=== PATIENT | male | born 2000 | race Caucasian/White ===

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

== ENCOUNTER 2021-02-03 00:02 | Emergency (ER) | payer OTHER ==
[2021-02-03 00:09] VITALS: RESP 16; TEMP 97.7
--- NOTE | 2021-02-03 00:31 | ED ---
Chest Pain HPI - General Chief Complaint: Chest Pain Stated Complaint: Chest Pain Time Seen by Provider: 02/03/21 00:17 Source: patient Mode of arrival: wheelchair Limitations: no limitations - History of Present Illness Initial Comments: This patient is a 20-year-old man who presents to be evaluated for left-sided chest pain. Patient states this is been going on intermittently for number days now. The patient states that every known and is coming by anxiety. He states that when he hasn't at work it improves when he exerts himself. He does also occasionally have some numbness and tingling associated MD Complaint: chest pain -: days(s) Onset: during rest Pain Location: left chest Pain Radiation: none Severity: moderate Quality: dull Consistency: intermittent, now resolved Improves With: nothing Worsens With: nothing Treatments Prior to Arrival: none - Related Data Home Medications Medication Instructions Recorded Confirmed Levothyroxine Sodium [Synthroid] 50 mcg PO DAILY 12/11/15 10/01/17 Acetaminophen [Tylenol] 650 mg PO Q6HR PRN 10/01/17 10/01/17 Lisdexamfetamine Dimesylate 60 mg PO DAILY 10/01/17 10/01/17 [Vyvanse] Previous Rx's Medication Instructions Recorded Ibuprofen [Motrin] 600 mg PO Q8HR PRN #20 tab 10/01/17 Oseltamivir [Tamiflu] 75 mg PO Q12HR #10 cap 10/01/17 Promethazine/Dextromethorphan 5 ml PO TID #120 ml 10/01/17 [Phenergan DM Syrup] Allergies Allergy/AdvReac Type Severity Reaction Status Date / Time No Known Allergies Allergy Verified 02/03/21 00:10 Review of Systems ROS Statement: Those systems with pertinent positive or pertinent negative responses have been documented in the HPI. ROS Other: All systems not noted in ROS Statement are negative. Constitutional: Denies: fever, chills Respiratory: Denies: cough, dyspnea Cardiovascular: Reports: as per HPI, chest pain. Denies: palpitations, edema, syncope Gastrointestinal: Denies: abdominal pain, nausea, vomiting Genitourinary: Denies: dysuria, hematuria Musculoskeletal: Denies: back pain Skin: Denies: rash Neurological: Denies: headache, weakness, numbness Psychiatric: Reports: anxiety EKG Findings - EKG Results: EKG: interpreted by RHONDA, sinus rhythm (With sinus arrhythmia, rate 64 bpm), normal axis, normal QRS, normal ST/T Past Medical History Past Medical History: Thyroid Disorder History of Any Multi-Drug Resistant Organisms: None Reported Past Surgical History: No Surgical Hx Reported Past Psychological History: Anxiety, Bipolar Smoking Status: Never smoker Past Alcohol Use History: None Reported Past Drug Use History: None Reported General Exam Limitations: no limitations General appearance: alert, in no apparent distress Head exam: Present: atraumatic, normocephalic Eye exam: Present: normal appearance. Absent: scleral icterus, conjunctival injection Neck exam: Present: normal inspection Respiratory exam: Present: normal lung sounds bilaterally. Absent: respiratory distress, wheezes, rales, rhonchi, stridor, chest wall tenderness Cardiovascular Exam: Present: regular rate, normal rhythm, normal heart sounds. Absent: systolic murmur, diastolic murmur, rubs, gallop GI/Abdominal exam: Present: soft. Absent: distended, tenderness, guarding, rebound, rigid, mass Extremities exam: Present: normal inspection, normal capillary refill. Absent: pedal edema, calf tenderness Back exam: Present: normal inspection Neurological exam: Present: alert Skin exam: Present: warm, dry, intact, normal color. Absent: rash Course Vital Signs 02/03/21 02/03/21 00:05 01:21 Temperature 97.7 F Pulse Rate 69 72 Respiratory 16 16 Rate Blood Pressure 134/76 122/60 O2 Sat by Pulse 100 100 Oximetry Disposition Clinical Impression: Chest pain Disposition: HOME SELF-CARE Condition: Good Instructions (If sedation given, give patient instructions): Chest Pain (ED) Is patient prescribed a controlled substance at d/c from ED?: No Referrals: Juan Bella Jr, DO [Primary Care Provider] - 1-2 days
--- NOTE | 2021-02-03 00:56 | XR ---
EXAM: XR Chest, 2 Views CLINICAL HISTORY: chest pain TECHNIQUE: Frontal and lateral views of the chest. COMPARISON: No relevant prior studies available. FINDINGS: Lungs: No significant abnormality. No consolidation. Pleural space: No significant abnormality. No pneumothorax. Heart: No significant abnormality. No cardiomegaly. Mediastinum: No significant abnormality. Bones/joints: No acute osseous abnormality. IMPRESSION: No acute cardiopulmonary process.
[2021-02-03 01:23] LABS: Basophils # (A) 0.1 k/uL (0-0.2); Basophils % (A) 1 %; Eosinophils # (A) 0.7 k/uL (0-0.7); Eosinophils % (A) 5 %; HCT 43.3 % (39.0-53.0); HGB 14.9 gm/dL (13.0-17.5); Lymphocytes % (A) 22 %; MCH 27.7 pg (25.0-35.0); MCHC 34.3 g/dL (31.0-37.0); MCV 80.6 fL (80.0-100.0); Mean Platelet Volume 8.4; Monocytes % (A) 7 %; Neutrophils # (A) 8.9 k/uL (1.3-7.7); Neutrophils % (A) 64 %; Platelet Count 246 k/uL (150-450); RBC 5.37 m/uL (4.30-5.90); RDW 13.3 % (11.5-15.5); WBC 13.8 k/uL (4.0-11.0)
[2021-02-03 01:24] VITALS: BP 122/60; PULSE 72
[2021-02-03 01:32] LABS: African American GFR (CKD) >90 (>60 ml/min/1.73 sqM); Anion Gap 9 mmol/L; Blood Urea Nitrogen 14 mg/dL (9-20); Calcium 9.8 mg/dL (8.4-10.2); Carbon Dioxide 24 mmol/L (22-30); Chloride 106 mmol/L (98-107); Glucose 96 mg/dL (74-99); Non-African American GFR(CKD) >90 (>60 ml/min/1.73 sqM); Potassium 4.2 mmol/L (3.5-5.1); Sodium 139 mmol/L (137-145)
== END 2021-02-03 02:05 | disposition home or self-care (01) ==
LOC: EC 00:02
DX: R07.89 Other chest pain (principal); R20.2 Paresthesia of skin; E07.9 Disorder of thyroid, unspecified; Z79.899 Other long term (current) drug therapy
CPT/HCPCS: 36415; 71046; 80048; 84443; 84484; 85025; 93005; 99285

== ENCOUNTER 2021-06-06 11:32 | Emergency (ER) | payer OTHER ==
[2021-06-06 12:11] VITALS: TEMP 97.9
--- NOTE | 2021-06-06 12:48 | XR ---
EXAMINATION TYPE: XR chest 2V DATE OF EXAM: 06/06/2021 COMPARISON: 02/03/2021 HISTORY: 20-year-old male with chest pain TECHNIQUE: PA and lateral views FINDINGS: The cardiomediastinal silhouette, aorta, and pulmonary vasculature are within normal limits. Lungs an d pleural spaces are clear. IMPRESSION: No acute cardiopulmonary process.
[2021-06-06] MEDS ORDERED: KETOROLAC 15 MG/ML 1 ML VIAL IM STA (15:12)
--- NOTE | 2021-06-06 15:14 | ED ---
General Adult HPI - General Chief complaint: Chest Pain Stated complaint: Chest/back/L arm pain Time Seen by Provider: 06/06/21 15:04 Source: patient, RN notes reviewed, old records reviewed Mode of arrival: wheelchair Limitations: no limitations - History of Present Illness Initial comments: This is a well-appearing 20-year-old male that presents to the emergency room with complaints of left shoulder pain that radiates down his left arm and sometimes into his left chest and left shoulder blade. He states that he has had this in the past and he was told that it was work-related from repetitive movements. He does admit that this is worse when he is at work. He has not tried any medications. He is a nonsmoker and does not use any drugs. He states he has not had fever, no nausea vomiting or diarrhea. He has full range of motion. He denies any injuries. Location: left, upper extremity (Shoulder and arm) Radiation: distal Severity scale (1-10): 6 Quality: other (Shooting) Consistency: intermittent Improves with: rest Worsens with: movement Associated Symptoms: denies other symptoms Treatments Prior to Arrival: none - Related Data Home Medications Medication Instructions Recorded Confirmed Levothyroxine Sodium [Synthroid] 50 mcg PO DAILY 12/11/15 10/01/17 Acetaminophen [Tylenol] 650 mg PO Q6HR PRN 10/01/17 10/01/17 Lisdexamfetamine Dimesylate 60 mg PO DAILY 10/01/17 10/01/17 [Vyvanse] Previous Rx's Medication Instructions Recorded Ibuprofen [Motrin] 600 mg PO Q8HR PRN #20 tab 10/01/17 Oseltamivir [Tamiflu] 75 mg PO Q12HR #10 cap 10/01/17 Promethazine/Dextromethorphan 5 ml PO TID #120 ml 10/01/17 [Phenergan DM Syrup] Ibuprofen [Motrin] 600 mg PO Q8HR PRN #30 tab 06/06/21 Allergies Allergy/AdvReac Type Severity Reaction Status Date / Time No Known Allergies Allergy Verified 06/06/21 12:11 Review of Systems ROS Statement: Those systems with pertinent positive or pertinent negative responses have been documented in the HPI. ROS Other: All systems not noted in ROS Statement are negative. Past Medical History Past Medical History: Thyroid Disorder History of Any Multi-Drug Resistant Organisms: None Reported Past Surgical History: No Surgical Hx Reported Past Psychological History: Anxiety, Bipolar Smoking Status: Never smoker Past Alcohol Use History: None Reported Past Drug Use History: None Reported General Exam Limitations: no limitations General appearance: alert, in no apparent distress Head exam: Present: atraumatic, normocephalic, normal inspection Eye exam: Present: normal appearance, EOMI Neck exam: Present: normal inspection, full ROM. Absent: tenderness, meningismus, lymphadenopathy, thyromegaly Respiratory exam: Present: normal lung sounds bilaterally Cardiovascular Exam: Present: regular rate, normal rhythm. Absent: systolic murmur, diastolic murmur, rubs, gallop, clicks GI/Abdominal exam: Present: soft, normal bowel sounds. Absent: distended, tenderness, guarding, rebound, rigid Extremities exam: Present: normal inspection, full ROM, normal capillary refill. Absent: tenderness, pedal edema, joint swelling, calf tenderness Back exam: Absent: tenderness, paraspinal tenderness, vertebral tenderness Neurological exam: Present: alert, oriented X3, CN II-XII intact Psychiatric exam: Present: normal affect, normal mood Skin exam: Present: warm, dry, intact, normal color. Absent: rash, cyanosis, diaphoretic, petechiae, pallor Course Vital Signs 06/06/21 06/06/21 12:06 16:17 Temperature 97.9 F Pulse Rate 83 64 Respiratory 19 18 Rate Blood Pressure 122/63 126/74 O2 Sat by Pulse 98 99 Oximetry EKG Findings - EKG Results: EKG: sinus rhythm (ventricular rate 58, [place] interval 0.150, QRS of 0.120, QTC 0. 386) Medical Decision Making - Medical Decision Making Chest x-ray shows no acute cardiopulmonary process. Patient's pain is exacerbated while at work. He states that he is doing heavy lifting over his head often. He has had this before and it was related to movements at work. He states that the pain goes from his shoulder down his left arm to his little finger and it is shooting in nature. He has not tried any Tylenol or Motrin at home. He has full range of movement denies any shortness of breath or nausea and vomiting. He has no family history of sudden cardiac . He'll be directed to follow up with primary care doctor in 1 week. Case discussed with Dr. Hall. Disposition Clinical Impression: Neuropathy Disposition: HOME SELF-CARE Condition: Good Additional Instructions: Take Motrin as prescribed for pain. Follow-up with the primary care doctor in 1 week. Return if any new or worsening symptoms. Prescriptions: Ibuprofen [Motrin] 600 mg PO Q8HR PRN #30 tab PRN Reason: Pain Is patient prescribed a controlled substance at d/c from ED?: No Referrals: Juan Bella Jr, [Primary Care Provider] - 1-2 days Time of Disposition: 15:46
[2021-06-06 16:18] VITALS: BP 126/74; PULSE 64; RESP 18
== END 2021-06-06 16:21 | disposition home or self-care (01) ==
LOC: EC 11:32
DX: G62.9 Polyneuropathy, unspecified (principal); E07.9 Disorder of thyroid, unspecified; Z79.890 Hormone replacement therapy
CPT/HCPCS: 93005; 71046; 96372; 99285; J1885

== ENCOUNTER 2023-11-30 03:58 | Emergency (ER) | payer OTHER ==
--- NOTE | 2023-11-30 04:21 | ED ---
Dizziness HPI - General Chief Complaint: Anxiety Stated Complaint: light headed dizziness chest pains Time Seen by Provider: 11/30/23 04:16 Source: patient, RN notes reviewed, old records reviewed Mode of arrival: ambulatory Limitations: no limitations - History of Present Illness Initial Comments: This is a 22-year-old male presenting from mother-baby for evaluation regards to dizziness and lightheadedness. The symptoms all began after his gave with today. Patient states he was simply stressed throughout the day and night unable to rest remember after the combination of events and became very lightheaded dizzy and weak. Patient has recent cardiac evaluation and evaluation for cause of chest pain including possible concern for blood clot all testing came back normal. Patient currently has no complaints and states he feels well MD Complaint: dizziness, lightheadedness -: minutes(s) Timing: gradual onset Description: sense of movement, lightheadedness History of Same: Yes History of Trauma: Yes Severity: mild Improves With: nothing Worsens With: nothing Associated Symptoms: denies other symptoms - Related Data Home Medications Medication Instructions Recorded Confirmed Levothyroxine Sodium [Synthroid] 50 mcg PO DAILY 12/11/15 10/01/17 Acetaminophen [Tylenol] 650 mg PO Q6HR PRN 10/01/17 10/01/17 Lisdexamfetamine Dimesylate 60 mg PO DAILY 10/01/17 10/01/17 [Vyvanse] Previous Rx's Medication Instructions Recorded Ibuprofen [Motrin] 600 mg PO Q8HR PRN #20 tab 10/01/17 Oseltamivir [Tamiflu] 75 mg PO Q12HR #10 cap 10/01/17 Promethazine/Dextromethorphan 5 ml PO TID #120 ml 10/01/17 [Phenergan DM Syrup] Ibuprofen [Motrin] 600 mg PO Q8HR PRN #30 tab 06/06/21 Allergies Allergy/AdvReac Type Severity Reaction Status Date / Time No Known Allergies Allergy Verified 11/30/23 04:11 Review of Systems ROS Statement: Those systems with pertinent positive or pertinent negative responses have been documented in the HPI. ROS Other: All systems not noted in ROS Statement are negative. Past Medical History Past Medical History: Thyroid Disorder History of Any Multi-Drug Resistant Organisms: None Reported Past Surgical History: No Surgical Hx Reported Past Psychological History: Anxiety, Bipolar Smoking Status: Never smoker Past Alcohol Use History: None Reported Past Drug Use History: None Reported General Exam Limitations: no limitations General appearance: alert, in no apparent distress, anxious Head exam: Present: atraumatic, normocephalic, normal inspection Eye exam: Present: normal appearance, PERRL, EOMI. Absent: scleral icterus, conjunctival injection, periorbital swelling ENT exam: Present: normal exam, mucous membranes moist Neck exam: Present: normal inspection. Absent: tenderness, meningismus, lymphadenopathy Respiratory exam: Present: normal lung sounds bilaterally. Absent: respiratory distress, wheezes, rales, rhonchi, stridor Cardiovascular Exam: Present: regular rate, normal rhythm, normal heart sounds. Absent: systolic murmur, diastolic murmur, rubs, gallop, clicks GI/Abdominal exam: Present: soft, normal bowel sounds. Absent: distended, tenderness, guarding, rebound, rigid Extremities exam: Present: normal inspection, full ROM, normal capillary refill. Absent: tenderness, pedal edema, joint swelling, calf tenderness Back exam: Present: normal inspection Neurological exam: Present: alert, oriented X3, CN II-XII intact Psychiatric exam: Present: normal affect, normal mood Skin exam: Present: warm, dry, intact, normal color. Absent: rash Course Vital Signs 11/30/23 04:08 Temperature 98.1 F Pulse Rate 100 Respiratory 18 Rate Blood Pressure 147/83 O2 Sat by Pulse 98 Oximetry - Reevaluation(s) Reevaluation #1: 11/30/23 04:47 Medical records reviewed Reevaluation #2: 11/30/23 04:47 Patient symptoms improved Reevaluation #3: 11/30/23 04:47 Patient informed of results and questions answered Reevaluation #4: Was pt. sent in by a medical professional or institution (, PA, INSTRUMENT MAKER AND REPAIRER, urgent care, hospital, or prison...) When possible be specific @ -no Did you speak to anyone other than the patient for history (EMS, parent, family, police, friend...)? What history was obtained from this source @ -no Did you review nursing and triage notes (agree or disagree)? Why? @ -agree Are old charts reviewed (outside hosp., previous admission, EMS record, old EKG, old radiological studies, urgent care reports/EKG's, prison records)? Report findings @ -yes Differential Diagnosis (chest pain, altered mental status, abdominal pain women, abdominal pain men, vaginal bleeding, weakness, fever, dyspnea, syncope, headache, dizziness, GI bleed, back pain, seizure, CVA, palpatations, mental health, musculoskeletal)? @ -prior EKG interpreted by me (3pts min.). @ -yes X-rays interpreted by me (1pt min.). @ -no CT interpreted by me (1pt min.). @ -no U/S interpreted by me (1pt. min.). @ -no What testing was considered but not performed or refused? (CT, X-rays, U/S, la bs)? Why? @ -none What meds were considered but not given or refused? Why? @ -none Did you discuss the management of the patient with other professionals (professionals i.e. , PA, INSTRUMENT MAKER AND REPAIRER, lab, RT, psych nurse, high school social studies tutor, cork wirer, teacher, officer lieutenant, bilingual case manager)? Give summary @ -no Was smoking cessation discussed for >3mins.? @ -no Was critical care preformed (if so, how long)? @ -no Were there social determinants of health that impacted care today? How? (Homelessness, low income, unemployed, alcoholism, drug addiction, transportation, low edu. Level, literacy, decrease access to med. care, intermediate, rehab)? @ -none Was there de-escalation of care discussed even if they declined (Discuss DNR or withdrawal of care, Hospice)? DNR status @ -no What co-morbidities impacted this encounter? (DM, HTN, Smoking, COPD, CAD, Cancer, CVA, ARF, Chemo, Hep., AIDS, mental health diagnosis, sleep apnea, morbid obesity)? @ -none Was patient admitted / discharged? Hospital course, mention meds given and route, prescriptions, significant lab abnormalities, going to OR and other pertinent info. @ - 22 male to ER for evaluation of significant anxiety throughout the day which culminated in giving under , patient had a letdown and felt lightheaded dizzy with some chest pain which all resolved. Patient feels improved here in the ER has recent evaluation for PE with multiple other medical conditions and patient had no findings. Patient can be discharged Discharged Undiagnosed new problem with uncertain prognosis? @ -no Drug Therapy requiring intensive monitoring for toxicity (Heparin, Nitro, Insulin, Cardizem)? @ -no Were any procedures done? @ -no Diagnosis/symptom? @ -Syncope, anxiety attack Acute, or Chronic, or Acute on Chronic? @ -Acute Uncomplicated (without systemic symptoms) or Complicated (systemic symptoms)? @ -Complicated Side effects of treatment? @ -no Exacerbation, Progression, or Severe Exacerbation? @ -exacerbation Poses a threat to life or bodily function? How? (Chest pain, [place], [place], pneumonia, PE, COPD, DKA, ARF, appy, cholecystitis, CVA, Diverticulitis, Homicidal, Suicidal, threat to staff... and all critical care pts) @ -yes with syncopal event Reevaluation #5: Differential Dizziness: Benign paroxysmal positional Vertigo, Menieres disease, otitis media, acoustic neuroma, vertebrobasilar insufficiency, cerebellar stroke, encephalitis, hypovolemic, arrhythmia, coronary artery syndrome, anemia, this is not meant to be an all-inclusive list EKG Findings - EKG Comments: EKG Findings:: EKG is sinus 82 TX 138 QRS 128 QTc 399 - EKG Results: EKG: interpreted by RHONDA Medical Decision Making - Medical Decision Making 22 male to ER for evaluation of significant anxiety throughout the day which culminated in giving under , patient had a letdown and felt lightheaded dizzy with some chest pain which all resolved. Patient feels improved here in the ER has recent evaluation for PE with multiple other medical conditions and patient had no findings. Patient can be discharged - EKG Data -: EKG Interpreted by Me Disposition Clinical Impression: Panic attack, Panic disorder Disposition: HOME SELF-CARE Condition: Good Instructions (If sedation given, give patient instructions): Generalized Anxiety Disorder (ED) Is patient prescribed a controlled substance at d/c from ED?: No Referrals: Cecy Muñiz PAC [Family Provider] - 1-2 days Time of Disposition: 04:45
[2023-11-30 04:36] VITALS: BP 147/83; PULSE 100; RESP 18; TEMP 98.1
== END 2023-11-30 05:04 | disposition home or self-care (01) ==
LOC: EC 03:58
DX: F41.0 Panic disorder [episodic paroxysmal anxiety] (principal); R55 Syncope and collapse
CPT/HCPCS: 93005; 99283; 99285

== ENCOUNTER 2024-05-15 18:26 | Observation (INO) | payer OTHER ==
--- NOTE | 2024-05-15 19:31 | ED ---
Psych HPI - General Source: patient, RN notes reviewed Mode of arrival: ambulatory Limitations: no limitations - History of Present Illness MD Complaint: suicidal ideation, feels depressed <Betsey Khan - Last Filed: 05/16/24 03:38> <Felix Tarango - Last Filed: 05/16/24 14:58> - General Chief Complaint: Psychiatric Symptoms Stated Complaint: Mental health Time Seen by Provider: 05/15/24 19:02 - History of Present Illness Initial Comments: This is a 23-year-old male who presents to the emergency department for psychiatric evaluation. Patient states that he has been getting increasingly depressed. States that he feels like he is a failure and not good enough. This has led to more frequent suicidal ideations. States that he had an outburst at home today and told his girlfriend he was going to drown himself in the [place]. He walked back inside shortly after leaving and she had called the police. Patient was agreeable to coming to the hospital and states that he wants to get better for his 5-month-old son and does not want to actually act on his impulses. D enies any homicidal ideations. Reports possible auditory and visual hallucinations of people saying his name and seeing people around, but nothing specific. Currently taking Vraylar, but does not believe it is effective. He is open to the idea of hospitalization. (Betsey Khan) - Related Data Home Medications Medication Instructions Recorded Confirmed Levothyroxine Sodium [Synthroid] 50 mcg PO DAILY 12/11/15 05/16/24 Cariprazine HCl [Vraylar] 1.5 mg PO DAILY 05/16/24 05/16/24 Allergies Allergy/AdvReac Type Severity Reaction Status Date / Time No Known Allergies Allergy Verified 05/16/24 09:41 Review of Systems ROS Other: All systems not noted in ROS Statement are negative. <Betsey Khan - Last Filed: 05/16/24 03:38> ROS Other: All systems not noted in ROS Statement are negative. <Felix Tarango - Last Filed: 05/16/24 14:58> ROS Statement: Those systems with pertinent positive or pertinent negative responses have been documented in the HPI. Past Medical History Past Medical History: Thyroid Disorder History of Any Multi-Drug Resistant Organisms: None Reported Past Surgical History: No Surgical Hx Reported Past Psychological History: Anxiety, Bipolar Smoking Status: Never smoker Past Alcohol Use History: None Reported Past Drug Use History: None Reported <Betsey Khan - Last Filed: 05/16/24 03:38> General Exam Limitations: no limitations General appearance: alert, in no apparent distress Head exam: Present: atraumatic, normocephalic, normal inspection Respiratory exam: Present: normal lung sounds bilaterally. Absent: respiratory distress, wheezes, rales, rhonchi, stridor Cardiovascular Exam: Present: regular rate, normal rhythm, normal heart sounds. Absent: systolic murmur, diastolic murmur, rubs, gallop, clicks Neurological exam: Present: alert, oriented X3, CN II-XII intact Psychiatric exam: Present: depressed, flat affect Skin exam: Present: warm, dry, intact, normal color. Absent: rash <Betsey Khan - Last Filed: 05/16/24 03:38> Course Vital Signs 05/15/24 05/16/24 18:45 04:54 Temperature 98.3 F 98.3 F Pulse Rate 85 87 Respiratory 18 18 Rate Blood Pressure 146/84 148/84 O2 Sat by Pulse 98 99 Oximetry Medical Decision Making <Betsey Khan - Last Filed: 05/16/24 03:38> <Felix Tarango - Last Filed: 05/16/24 14:58> - Medical Decision Making This is a 23 year old male who presents to the emergency department for mental health evaluation. Was pt. sent in by a medical professional or institution? @ -No Did you speak to anyone other than the patient for history? @ -No Did you review nursing and triage notes? @ -Yes, and I agree, it is accurate with regards to the patient's symptoms. Were old charts reviewed? @ -No Differential Diagnosis? @ -Differential Mental Health Depression, anxiety, bipolar, psychosis, schizophrenia, borderline personality, situational depression, adjustment disorder, behavioral disorder, brain tumor, malingering, substance abuse, encephalopathy, medication reaction, dementia, hypothyroidism, degenerative neurologic disorder, lupus.... This is not meant to be all-inclusive list EKG interpreted by me (3pts min.)? @ -Not obtained X-rays interpreted by me (1pt min.)? @ -Not obtained CT interpreted by me (1pt min.)? @ -Not obtained U/S interpreted by me (1pt. min.)? @ -Not obtained What testing was considered but not performed? (CT, X-rays, U/S, labs)? Why? @ -None What meds were considered but not given? Why? @ -None Did you discuss the management of the patient with other professionals? @ -No Did you reconcile home meds? @ -No Was smoking cessation discussed for >3mins.? @ -No Was critical care preformed (if so, how long)? @ -No Were there social determinants of health that impacted care today? How? (Homelessness, low income, unemployed, alcoholism, drug addiction, transpo rtation, low edu. Level, literacy, decrease access to med. care, assisted, rehab)? @ -No Was there de-escalation of care discussed even if they declined? (Discuss DNR or withdrawal of care, Hospice)? @ -No What co-morbidities impacted this encounter? (DM, HTN, Smoking, COPD, CAD, Cancer, CVA, Hep., AIDS, mental health diagnosis, sleep apnea, morbid obesity)? @ -Mental health diagnosis Was patient admitted / discharged? @ -Patient's BAT was 0.0 and he was cleared for EPS evaluation. Urinalysis and UDS negative. Case signed out to ED attending pending EPS evaluation. (Betsey Khan) Was patient admitted / discharged? Hospital course, mention meds given and route, prescriptions, significant lab abnormalities, going to OR and other pertinent info. @ -Patient was evaluated by EPS and they determined that the patient would be admitted to the psychiatric. After the patient was here for a while they did a COVID test the patient's was a COVID test positive so patient will be admitted to the medical unit to Dr. Blas and psych will be consulted Undiagnosed new problem with uncertain prognosis? @ -No Drug Therapy requiring intensive monitoring for toxicity (Heparin, Nitro, Insulin, Cardizem)? @ -No Were any procedures done? @ -No Diagnosis/symptom? @ -Suicidal ideations Acute, or Chronic, or Acute on Chronic? @ -Acute Uncomplicated (without systemic symptoms) or Complicated (systemic symptoms)? @ -Complicated Side effects of treatment? @ -No Exacerbation, Progression, or Severe Exacerbation? @ -No Poses a threat to life or bodily function? How? (Chest pain, [place], [place], pneumonia, PE, COPD, DKA, ARF, appy, cholecystitis, CVA, Diverticulitis, Homicidal, Suicidal, threat to staff... and all critical care pts) @ -No Diagnosis/symptom? @ -Depression Acute, or Chronic, or Acute on Chronic? @ -Acute Uncomplicated (without systemic symptoms) or Complicated (systemic symptoms)? @ -Complicated Side effects of treatment? @ -None Exacerbation, Progression, or Severe Exacerbation] @ -No Poses a threat to life or bodily function? @ -No (Felix Tarango) - Lab Data Lab Results 05/15/24 05/16/24 Range/Units 19:29 11:40 Urine Color Light Yellow Urine Appearance Clear (Clear) Urine pH 6.5 (5.0-8.0) Ur Specific [place] 1.022 (1.001-1.035) Urine Protein Negative (Negative) Urine Glucose (UA) Negative (Negative) Urine Ketones Negative (Negative) Urine Blood Negative (Negative) Urine Nitrite Negative (Negative) Urine Bilirubin Negative (Negative) Urine Urobilinogen <2.0 (<2.0) mg/dL Ur Leukocyte Esterase Negative (Negative) Urine Opiates Screen Not Detected (NotDetected) Ur Oxycodone Screen Not Detected (NotDetected) Urine Methadone Screen Not Detected (NotDetected) Ur Barbiturates Screen Not Detected (NotDetected) U Tricyclic Antidepress Not Detected (NotDetected) Ur Phencyclidine Scrn Not Detected (NotDetected) Ur Amphetamines Screen Not Detected (NotDetected) U Methamphetamines Scrn Not Detected (NotDetected) U Benzodiazepines Scrn Not Detected (NotDetected) Urine Cocaine Screen Not Detected (NotDetected) U Marijuana (THC) Screen Not Detected (NotDetected) SARS-CoV-2 (PCR) Detected A (Not Detectd) Disposition <Betsey Khan - Last Filed: 05/16/24 03:38> Time of Disposition: 11:59 <Felix Tarango - Last Filed: 05/16/24 14:58> Clinical Impression: Depression, Suicidal ideation Disposition: ADMITTED IP TO THIS HOSP Referrals: Claritza Jacobson DO [Primary Care Provider] - 1-2 days
[2024-05-15 19:52] LABS: Appearance,Urine Clear (Clear); Bilirubin,Urine Negative (Negative); Blood,Urine Negative (Negative); Color,Urine Light Yellow; Glucose,Urine (UA) Negative (Negative); Ketones,Urine Negative (Negative); Leukocyte Esterase,Urine Negative (Negative); Nitrite,Urine Negative (Negative); PH, Urine 6.5 (5.0-8.0); Protein,Urine Negative (Negative); Specific Gravity,Urine 1.022 (1.001-1.035); Urobilinogen,Urine <2.0 mg/dL (<2.0)
[2024-05-15 20:03] LABS: Amphetamine Screen,Urine Not Detected (NotDetected); Barbiturate Screen,Urine Not Detected (NotDetected); Benzodiazepines Screen,Urine Not Detected (NotDetected); Cocaine Screen,Urine Not Detected (NotDetected); Methadone Screen, Urine Not Detected (NotDetected); Opiate Screen,Urine Not Detected (NotDetected); Oxycodone Screen, Urine Not Detected (NotDetected); Phencyclidine Screen,Urine Not Detected (NotDetected); Tricyclic Antidepressant,Urine Not Detected (NotDetected); Urn Cannabinoid Scrn Not Detected (NotDetected)
[2024-05-16] MEDS: LEVOTHYROXINE 50 MCG TAB PO SCH (17:52)
--- NOTE | 2024-05-16 18:54 | P.HPIM ---
History of Present Illness H&P Date: 05/16/24 Chief Complaint: Suicidal ideation Patient is an 23-year-old male with a past medical history of hypothyroidism, anxiety/bipolar disorder currently on cariprazine was brought to the hospital for psychiatric evaluation. Patient states that he has been taking the antidepressant medication for the past 2 months. Patient also states that for the past 1 month he has been feeling very depressed and feels like he is not good enough. He has been having frequent thoughts of suicidal ideation. Apparently he had an argument with his girlfriend and told her he is going to drown himself in the leg. She called police and was brought to ER. Patient otherwise denied any homicidal ideation. Denied hallucinations. Patient has been afebrile. Denied any recent illnesses. No nausea vomiting abdominal pain or diarrhea. No chest pain shortness of breath. No cough or sputum production. Denies any recent illnesses. No sick contacts. Laboratory data not available at this time. Urinalysis is negative for infection. UDS is negative. Patient is tested positive for COVID-19 PCR. Review of Systems Constitutional: Patient denies any fever or chills . No generalized weakness or weight loss. Abdomen: Patient denied nausea vomiting and diarrhea and abdominal pain. Cardiovascular: Patient denies any chest pain or short of breath no palpitations. Respiratory: patient denied any cough or sputum production. No shortness of breath Neurologic: Patient denied any numbness or tingling. no headache. Musculoskeletal: Patient denies any complaints of joint swelling or deformity. Skin: Negative Psychiatric: Depression Endocrine: No heat or cold intolerance. No recent weight gain. Genitourinary: No dysuria or hematuria. All other 14 point ROS negative except the above Past Medical History Past Medical History: Thyroid Disorder History of Any Multi-Drug Resistant Organisms: None Reported Past Surgical History: No Surgical Hx Reported Past Psychological History: Anxiety, Bipolar Smoking Status: Never smoker Past Alcohol Use History: None Reported Past Drug Use History: None Reported Medications and Allergies Home Medications Medication Instructions Recorded Confirmed Type Levothyroxine Sodium [Synthroid] 50 mcg PO DAILY 12/10/05/16/24 History Cariprazine HCl [Vraylar] 1.5 mg PO DAILY 05/16/24 05/16/24 History Allergies Allergy/AdvReac Type Severity Reaction Status Date / Time No Known Allergies Allergy Verified 05/16/24 09:41 Physical Exam Vitals: Vital Signs Temp Pulse Resp BP Pulse Ox 05/16/24 04:54 98.3 F 87 18 148/84 99 PHYSICAL EXAMINATION: Patient is lying in the bed comfortably, no acute distress, awake alert and oriented.. HEENT: Normocephalic. Neck is supple. Pupils reactive. Nostrils clear. Oral cavity is moist. Neck reveals no JVD, carotid bruits, or thyromegaly. CHEST EXAMINATION: Trachea is central. Symmetrical expansion. Lung porter clear to auscultation and percussion. CARDIAC: Normal S1, S2 with no gallops. No murmurs ABDOMEN: Soft. Bowel sounds normal. No organomegaly. No abdominal bruits. Extremities: reveal no edema. No clubbing or cyanosis Neurologically awake, alert, oriented x3 with well-coordinated movements. No focal deficits noted Skin: No rash or skin lesions. Psychiatric: Coperative. Nonsuicidal Musculoskeletal: No joint swelling or deformity. Normal range of motion. Results Labs: Abnormal Lab Results - Last 24 Hours (Table) 05/16/24 Range/Units 11:40 SARS-CoV-2 (PCR) Detected A (Not Detectd) Thrombosis Risk Factor Assmnt - DVT/VTE Prophylaxis DVT/VTE Prophylaxis: Pharmacologic Prophylaxis ordered Assessment and Plan Assessment: Acute COVID-19 infection. Patient is not hypoxic. Denies any prior vaccination. Acute suicidal ideation Depression and bipolar disorder Hypothyroidism DVT prophylaxis patient is ambulatory Plan: Patient will be continued on droplet precautions and contact precautions. Patient is not hypoxic. No prior history of vaccination as per patient. Continue symptomatic management. Follow-up CBC BMP, LDH, CRP. Follow-up closely. Psychiatry was consulted for evaluation. Patient is medically stable for psychiatric admission.
[2024-05-17] MEDS: ZINC SULFATE 220 MG CAP PO SCH (08:57)
[2024-05-17] MEDS: ASCORBIC ACID 500 MG TAB PO SCH (08:57)
[2024-05-17 11:57] LABS: ALT 26 U/L (10-49); AST 21 U/L (14-35); Albumin 4.6 g/dL (3.8-4.9); Alkaline Phosphatase 92 U/L (41-126); BUN/Creat Ratio 12.89 Ratio (12.00-20.00); Blood Urea Nitrogen 11.6 mg/dL (9.0-27.0); Calcium 9.6 mg/dL (8.7-10.3); Carbon Dioxide 23.5 mmol/L (21.6-31.8); Chloride 103 mmol/L (96-109); Globulin 2.7 g/dL (1.6-3.3); Glucose 84 mg/dL (70-110); LDH 268 U/L (120-246); Potassium 4.5 mmol/L (3.5-5.5); Sodium 139 mmol/L (135-145); Total Bilirubin 0.4 mg/dL (0.3-1.2); Total Protein 7.3 g/dL (6.2-8.2)
--- NOTE | 2024-05-17 13:25 | P.CN ---
Psychiatric Consult - . Consult date: 05/17/24 Consult:: 05/17/24 10:41 This is a 23-year-old male who presents to the emergency department for psychiatric evaluation. Patient states that he has been getting increasingly depressed. States that he feels like he is a failure and not good enough. This has led to more frequent suicidal ideations. States that he had an outburst at home today and told his girlfriend he was going to drown himself in the [place]. He walked back inside shortly after leaving and she had called the police. Patient was agreeable to coming to the hospital and states that he wants to get better for his 5-month-old son and does not want to actually act on his impulses. Denies any homicidal ideations. Reports possible auditory and visual hallucinations of people saying his name and seeing people around, but nothing specific. Currently taking Vraylar, but does not believe it is effective. He is open to the idea of hospitalizationbecause of his ongoing urges to kill himself and wanting to find medicine that does work he points out that if he hadn't caught himself at the last minute he would've gone on to commit suicide. History of present illness the patient been treated for depression at one point he was told he had bipolar disorder he says he does have moods have fluctuated. They fluctuate from depression to normal or from depression to agitated and angry he says that the fluctuations weren't more knows 1 it's younger but still when he gets angry he endangers himself and others. .the patient is in a long-term relationship with for 2 years with his girlfriend they have a child together a son who is 5 and he wants to be there for both of them that he knows he needs to get his moods under control. He and his girlfriend of been living with her mom and the patient does not get along well with mom. So when he leaves he will be going to stay with his parents for a while and try to work toward getting a job. However because of his mood swings every time he gets a job he does well for a while and then he gets really really angry at the job or the boss and he quits so he has not been stable enough to provide for his family. Social history the patient is fourth of 7 children born to his parents are alive and together his dad struggled with bipolar and is on some medication he has a brother who has autism is not sure if any of the others have mood swings. He completed high school no no legal issues. Mental status exam currently is good eye contact reasonable response times no pressure he is somewhat depressed and does have these impulses of wanting to just kill himself somewhat ego dystonic but he is afraid he might act in the middle of it. No psychotic symptoms he is intelligent abstract with a sense of humor cooperative oriented to person place time and circumstance gait and station are normal self-care is adequate. Diagnosis bipolar 2 currently depressed. I think he should try Depakote Henry was at [facility] and is good for agitated mood swings but just has not worked for him he might need Depakote and the dopamine to hugo like Silverio and he may not tolerate the Depakote by think we should start there. He'll need to be followed daily by psychiatry
[2024-05-17] MEDS: DIVALPROEX ER 500 MG TAB.ER.24H PO SCH (19:59)
[2024-05-18 09:45] LABS: Basophils # (A) 0.09 X 10*3/uL (0.00-0.10); Basophils % (A) 0.7 %; Eosinophils # (A) 0.27 X 10*3/uL (0.04-0.35); Eosinophils % (A) 2.1 %; HCT 51.1 % (39.6-50.0); Lymphocytes # (A) 2.95 X 10*3/uL (0.90-5.00); Lymphocytes % (A) 23.5 %; MCH 27.6 pg (27.0-32.0); MCHC 33.3 g/dL (32.0-37.0); MCV 82.8 FL (80.0-97.0); Mean Platelet Volume 12.1 FL (9.5-12.2); Monocytes # (A) 1.02 X 10*3/uL (0.20-1.00); Monocytes % (A) 8.1 %; NRBC Per 100 WBC 0 X 10*3/uL (0.00-0.01); Neutrophils # (A) 8.14 X 10*3/uL (1.80-7.70); Neutrophils % (A) 64.9 %; Platelet Count 279 X 10*3/uL (140-440); RBC 6.17 X 10*6/uL (4.40-5.60); RDW 13.2 % (11.5-14.5); WBC 12.56 X 10*3/uL (4.50-10.00)
[2024-05-18 10:31] LABS: BUN/Creat Ratio 12.33 Ratio (12.00-20.00); Blood Urea Nitrogen 11.1 mg/dL (9.0-27.0); Calcium 9.5 mg/dL (8.7-10.3); Carbon Dioxide 24.2 mmol/L (21.6-31.8); Chloride 101 mmol/L (96-109); Glucose 90 mg/dL (70-110); Potassium 4.7 mmol/L (3.5-5.5); Sodium 138 mmol/L (135-145)
--- NOTE | 2024-05-18 12:11 | P.PN ---
Subjective Progress Note Date: 05/18/24 This is a 23-year-old gentleman admitted with acute COVID infection- asymptomatic, depression, suicidal in a patient with history of bipolar and multiple other medical issues. Denies chest pain, palpitations or shortness of breath. Maintaining O2 sats in the high 90s on room air. Afebrile .denies lightheadedness, dizziness or focal deficits .medically cleared, maintained on suicide precautions with sitter at bedside. Patient is being seen daily by psychiatry. Objective - Vital Signs Vital signs: Vital Signs Temp 98.7 F 05/18/24 07:39 Pulse 75 05/18/24 07:39 Resp 17 05/18/24 07:39 BP 130/84 05/18/24 07:39 Pulse Ox 98 05/18/24 07:39 FiO2 Intake & Output 05/17/24 05/18/24 05/18/24 18:59 06:59 18:59 Other: # Voids 3 1 - Exam PHYSICAL EXAMINATION: VS: Reviewed General : Alert and oriented x 3, lying in bed, no acute distress, sitter at bedside HEENT: Normocephalic. Neck is supple. Pupils reactive.MMM. NECK: Supple, no JVD CHEST EXAMINATION: Unlabored, equal air entry, clear to auscultation CARDIAC: Normal S1, S2 with no gallops. No murmurs ABDOMEN: Soft. Nondistended, nontender. No guarding, positive bowel sounds. Extremities: No edema, clubbing or cyanosis Neurological: Cranial nerves II through XII grossly intact no focal deficits noted Skin: No rash noted, warm and dry Psychiatric: Calm, Coperative. - Labs CBC & Chem 7: 05/18/24 04:28 05/18/24 04:28 Labs: Abnormal Lab Results - Last 24 Hours (Table) 05/17/24 05/18/24 05/18/24 Range/Units 05:37 04:28 04:28 WBC 12.56 H (4.50-10.00) X 10*3/uL RBC 6.17 H (4.40-5.60) X 10*6/uL Hct 51.1 H (39.6-50.0) % Immature Gran # 0.09 H (0.00-0.04) X 10*3/uL Neutrophils # 8.14 H (1.80-7.70) X 10*3/uL Monocytes # 1.02 H (0.20-1.00) X 10*3/uL Anion Gap 12.50 H 12.80 H (4.00-12.00) mmol/L Lactate Dehydrogenase 268 H (120-246) U/L Assessment and Plan Assessment: Acute COVID-19 infection, asymptomatic Acute suicidal ideation Depression and bipolar disorder Hypothyroidism Plan: Continue on current medication regimen ,monitoring and symptomatic treatment. Medically cleared-COVID asymptomatic. Maintain suicide precautions. Follow closely with psychiatry. The impression and plan of care has been dictated as directed. : I performed a history and examination of this patient, discussed the same with the dictator. I agree with the dictator's note ,documented as a scribe. Any additional findings or plans will be noted.
[2024-05-19 01:17] VITALS: RESP 17
[2024-05-19 08:46] VITALS: TEMP 97.9
--- NOTE | 2024-05-19 09:43 | P.PN ---
Subjective Progress Note Date: 05/19/24 This is a 23-year-old gentleman admitted with acute COVID infection- asymptomatic, depression, suicidal in a patient with history of bipolar and multiple other medical issues. Denies chest pain, palpitations or shortness of breath. Maintaining O2 sats in the high 90s on room air. Afebrile .denies lightheadedness, dizziness or focal deficits .medically cleared, maintained on suicide precautions with sitter at bedside. Patient is being seen daily by psychiatry. 05/19/2024 sitting up in chair, denies chest pain, palpitations or shortness of breath. Maintaining O2 sats in the high 90s on room air. Denies sore throat, congestion. Psychiatry following .suicide precautions maintained. Sitter at bedside. Denies suicidal or homicidal ideation. Maintained on Depakote. denies feeling sad/depression. Afebrile. Objective - Vital Signs Vital signs: Vital Signs Temp 97.9 F 05/19/24 08:00 Pulse 82 05/19/24 08:00 Resp 17 05/19/24 08:00 BP 135/83 05/19/24 08:00 Pulse Ox 99 05/19/24 08:00 FiO2 Intake & Output 05/18/24 05/19/24 05/19/24 18:59 06:59 18:59 Other: Voiding Method Toilet Toilet # Voids 4 1 - Exam PHYSICAL EXAMINATION: VS: Reviewed General : Alert and oriented x 3, calm,sitting up in bed, no acute distress, sitter at bedside HEENT: Normocephalic. Neck is supple. Pupils reactive.MMM. NECK: Supple, no JVD CHEST EXAMINATION: Unlabored, equal air entry, clear to auscultation CARDIAC: Normal S1, S2 with no gallops. No murmurs ABDOMEN: Soft. Nondistended, nontender. No guarding. Extremities: No edema, clubbing or cyanosis Neurological: Cranial nerves II through XII grossly intact no focal deficits noted Skin: No rash noted, warm and dry - Labs CBC & Chem 7: 05/18/24 04:28 05/18/24 04:28 Labs: Abnormal Lab Results - Last 24 Hours (Table) 05/18/24 05/18/24 Range/Units 04:28 04:28 WBC 12.56 H (4.50-10.00) X 10*3/uL RBC 6.17 H (4.40-5.60) X 10*6/uL Hct 51.1 H (39.6-50.0) % Immature Gran # 0.09 H (0.00-0.04) X 10*3/uL Neutrophils # 8.14 H (1.80-7.70) X 10*3/uL Monocytes # 1.02 H (0.20-1.00) X 10*3/uL Anion Gap 12.80 H (4.00-12.00) mmol/L Assessment and Plan Assessment: Acute COVID-19 infection, asymptomatic Acute suicidal ideation Depression and bipolar disorder Hypothyroidism Plan: Continue on current medication regimen ,monitoring and symptomatic treatment. Medically cleared for DC. maintain suicide precautions. Further recommendations pending per psychiatry. The impression and plan of care has been dictated as directed. : I performed a history and examination of this patient, discussed the same with the dictator. I agree with the dictator's note ,documented as a scribe. Any additional findings or plans will be noted.
--- NOTE | 2024-05-19 13:37 | P.PN ---
Progress Note - Text Progress Note Date: 05/19/24 Interval History: Patient was seen today for psychiatric follow-up regarding his condition at the request of the primary team and the nurse. Patient's nurse states that patient has been doing fairly well eating sleeping not endorsing any depression or thoughts of suicide or hearing voices. Patient was seen watching television, agreeable to speak to repairer typewriter. He remains on one-to-one sitter. He states that he was having a tough few days, states that he has been on Vraylar and has been going to see his psychiatrist regularly, states that he all of a sudden had suicidal thoughts mainly. Claims that since being in the hospital and being started on Depakote he has been tolerating it well, no issues and has been noticing improvement in his anxiety and also mood. He claims he feels more stable, states that he wants to live for his child and also his future. He was agreeable to repairer typewriter to call his girlfriend for further collateral. His girlfriend Kath was called at [phone] who claims that patient has been doing better since being in the hospital, no longer suicidal, she states she feels comfortable with having him back home and denies any guns or weapons in the house. At this time patient denies any suicidal or homical ideations, intent or plan. Patient denies any auditory, visual hallucinations and denies any paranoia or delusions. Patient denies any side effects from the medications and has been compliant with meds. Mental Status Exam: General Appearance: Patient appears to be mildly overweight, has a fried, stated age is alert, directable, and cooperative. Wearing hospital gown Behavior: Patient is calmly seated without any agitated behavior. Attempts to cooperate Speech: Patient's speech is fluent and nonpressured. Mood/Affect: Mood is improving mildly, affect is congruent and improving Suicidality/Homicidality: Patient denies having any suicidal or homicidal ideation intent or plan. Perceptions: Patient denies any visual hallucinations and denies any auditory hallucinations Though content/process: There is no evidence of any delusional thought content and thought process is linear and goal-directed. More future oriented today Memory and concentration: AOX3, grossly intact for the purposes of this session Judgment and insight: Improving mildly Assessment Bipolar disorder, depressed Plan: -At this time patient DOES NOT meet criteria for inpatient psychiatric admission. -Would recommend the following medication changes/additions: Can continue with Depakote 1000 mg nightly for mood stabilization, Vraylar 1.5 mg daily for mood stabilization/bipolar disorder -Can discontinue 1:1 sitter at this time as patient is not currently an imminent threat to themselves -Patient claims that he has an upcoming appointment at [facility] on may 25 for mental health follow up and was encouraged to go. -Patient's girlfriend is on board with him being discharged today, she claims that environment is safe at home no guns or weapons. -Communicated plan to patient's nurse -Psychiatry will sign off at this time -Please contact with any questions.
--- NOTE | 2024-05-19 14:58 | P.DS ---
Providers Date of admission: 05/16/24 14:58 Expected date of discharge: 05/19/24 Attending physician: Hola Mckenzie MD Consults: 05/16/24 14:58 Consult Physician Urgent Consulting Provider: Renzo Garcia Consult Reason/Comments: Depression, suicidal ideations Do you want consulting provider notified?: Yes Primary care physician: Claritza Jacobson Hospital Course: Final Diagnoses: Acute COVID-19 infection, asymptomatic Acute suicidal ideation Depression and bipolar disorder Hypothyroidism Hospital course: This is a 23-year-old gentleman admitted with acute COVID infection- asymptomatic, depression, suicidal in a patient with history of bipolar and multiple other medical issues. Denies chest pain, palpitations or shortness of breath. Maintaining O2 sats in the high 90s on room air. Afebrile .denies lightheadedness, dizziness or focal deficits .medically cleared, maintained on suicide precautions with sitter at bedside. Patient is being seen daily by psychiatry. 05/19/2024 sitting up in chair, denies chest pain, palpitations or shortness of breath. Maintaining O2 sats in the high 90s on room air. Denies sore throat, congestion. Psychiatry following .suicide precautions maintained. Sitter at bedside. Denies suicidal or homicidal ideation. Maintained on Depakote. denies feeling sad/depression. Afebrile. Medically cleared for DC. maintain suicide precautions. Further recommendations pending per psychiatry. Reevaluated by psychiatry, suicide precautions discontinued .patient has been cleared by psychiatry for discharge home on both vraylar and Depakote. Patient claims he has an upcoming appointment at [facility] on May 25 for mental health follow-up. Patient will be discharged home today in a stable condition with guarded prognosis. The impression and plan of care has been dictated as directed. : I performed a history and examination of this patient, discussed the same with the dictator. I agree with the dictator's note ,documented as a scribe. Any additional findings or plans will be noted. Patient Condition at Discharge: Stable Plan - Discharge Summary Discharge Rx Participant: No New Discharge Prescriptions: New Ascorbic Acid [Vitamin C] 500 mg PO DAILY tab Divalproex ER [Depakote ER] 1,000 mg PO HS #14 tab Zinc Sulfate [Orazinc] 220 mg PO DAILY #30 cap Continue Levothyroxine Sodium [Synthroid] 50 mcg PO DAILY Cariprazine HCl [Vraylar] 1.5 mg PO DAILY Discharge Medication List Levothyroxine Sodium [Synthroid] 50 mcg PO DAILY 12/11/15 [History] Cariprazine HCl [Vraylar] 1.5 mg PO DAILY 05/16/24 [History] Ascorbic Acid [Vitamin C] 500 mg PO DAILY tab 05/19/24 [Rx] Divalproex ER [Depakote ER] 1,000 mg PO HS #14 tab 05/19/24 [Rx] Zinc Sulfate [Orazinc] 220 mg PO DAILY #30 cap 05/19/24 [Rx] Follow up Appointment(s)/Referral(s): Dr. MARCELA Psychiatry [Other] - 1 Week Hola Mckenzie MD [STAFF PHYSICIAN] - [address] Psychiatry [Other] - 05/25/24 (Patient claims he has an upcoming appointment at [facility] on May 25 for mental health follow-up.) Discharge/Stand Alone Forms: Outpatient Therapy List
[2024-05-19 15:08] VITALS: BP 141/85; PULSE 101
== END 2024-05-19 15:50 | disposition home or self-care (01) ==
LOC: EC 18:26 → INTOOBSV 05-16 14:58 → 4SSUR 05-16 14:58
PROVIDERS: ADMIT Family Medicine; ATTEND Family Medicine
DX: F31.81 Bipolar II disorder (principal); R45.851 Suicidal ideations; U07.1 COVID-19; E03.9 Hypothyroidism, unspecified; F41.9 Anxiety disorder, unspecified; E66.3 Overweight; Z68.38 Body mass index [BMI] 38.0-38.9, adult; Z79.890 Hormone replacement therapy; Z79.899 Other long term (current) drug therapy
CPT/HCPCS: 80048; 80053; 80306; 81003; 82075; 83615; 84443; 85025; 86140; 87635; 99285